=== PATIENT | female | born 1945 | race Caucasian/White ===

== ENCOUNTER 2016-05-23 08:25 | Emergency (ER) | payer OTHER, MEDICARE ==
[~2016-05-23 08:25] MED LIST: ACCUPRIL40 M1 PO; AMLODIPINE BESY1 T23 PO; AMLODIPINE BESYL5 M1 PO; ASPIRIN EC325 M2 PO; ATORVASTATIN CA10 M1 PO; AZITHROMYCIN D250 MG PO; B COMPLEX1 EACH PO; CALCIUM 600 +1 EA12 PO; CENTRUM SILVER1 EACH PO; FISH OIL 1,0001 EACH PO; KEFLEX500 M1 PO; METFORMIN HCL500 M3 PO; METFORMIN HCL500 M4 PO; METOPROLOL TART25 M1 PO; METOPROLOL TART50 MG PO; MUCINEX600 M1 PO; NATEGLINIDE60 M1 PO; NEXIUM 40MG40 MG PO; OMEPRAZOLE40 MG PO; QUINAPRIL HCL40 M1 PO; QUINAPRIL HYDRO40 MG PO; VITAMIN C500 M6 PO; VITAMIN D1000 UNIT PO
--- NOTE | 2016-05-23 09:14 | CT SCAN REPORT ---
EXAMINATION: CT HEAD WITHOUT CONTRAST CLINICAL INFORMATION: Headache with dizziness and syncope COMPARISON: None. TECHNIQUE: Contiguous axial imaging was performed from the skull base to vertex without intravenous administration of contrast. DLP: 600.71 mGy-cm. FINDINGS: There is no evidence of acute intracranial hemorrhage or territorial infarction. No abnormal mass effect or midline shift is seen. Bagley to white matter differentiation is well preserved. No extra-axial fluid collections are identified. The ventricles are normal in size. There is no abnormal attenuation within the brain parenchyma. Basal ganglia calcifications are seen bilaterally. The osseous structures and soft tissues are normal. The mastoid air cells are well aerated. There is mucosal thickening in the right maxillary sinus and opacification of a few right ethmoid air cells. There is some bony thickening about the right maxillary sinus wall consistent with chronic sinus disease. IMPRESSION: No acute intracranial pathology. Right maxillary and right ethmoid sinus disease.
--- NOTE | 2016-05-23 09:33 | ED AMS/SEIZURE/WEAK/DIZZY ---
History of Present Illness General Chief Complaint: Syncope and Near-Syncope Stated Complaint: NEAR SYNCOPE,DIZZY, FALL, -HEADSTRIKE, -THINNERS Source: patient, family, old records Exam Limitations: no limitations Vital Signs & Intake/Output Vital Signs & Intake/Output Vital Signs Date Time Temp Pulse Resp B/P Pulse O2 O2 Flow FiO2 Ox Delivery Rate 05/23 1239 98.4 78 18 174/73 99 Room Air 05/23 0833 96.9 89 20 160/90 97 Room Air Allergies Coded Allergies: Penicillins (Intermediate, RASH 07/13/15) Sulfa (Sulfonamide Antibiotics) (Intermediate, RASH 07/13/15) Uncoded Allergies: ARTIFICIAL SWEETNERS (UNKNOWN 03/15/14) Reconcile Medications Amlodipine Besylate 5 MG TABLET 1 TAB PO DAILY HEART (Reported) Ascorbate Calcium (Vitamin C) 500 MG TABLET 1 TAB PO DAILY SUPPLEMENT ( Reported) Aspirin (Ecotrin*) 325 MG TABLET.DR 1 TAB PO DAILY HEART HEALTH (Reported) Atorvastatin Calcium 10 MG TABLET 1 TAB PO DAILY CHOLESTEROL (Reported) Calcium Carbonate/Vitamin D3 (Calcium 600 + Vit D Tablet) 1 EACH TABLET 2 TAB PO DAILY SUPPLEMENT (Reported) Cephalexin (Keflex) 500 MG CAPSULE 1 CAP PO TID INFECTION Cholecalciferol (Vitamin D3) (Vitamin D) 1,000 UNIT TABLET 1 TAB PO DAILY SUPPLEMENT (Reported) Cholecalciferol (Vitamin D3) (Vitamin D) 1,000 UNIT TABLET 1 TAB PO DAILY SUPPLEMENT (Reported) Esomeprazole (Nexium) 40 MG CAP 1 TAB PO BID GERD (Reported) Guaifenesin (Mucinex) 600 MG TAB.ER.12H 1 TAB PO BID ALLLERGIES (Reported) Metformin HCl (Metformin HCl ER) 500 MG TAB.ER.24H 1 TAB PO TID DM (Reported) Metoprolol Tartrate 25 MG TABLET 1.5 TAB PO BID HEART (Reported) Multivit-Min/Iron/Folic/Lutein (Centrum Silver Women Tablet) 1 EACH TABLET 1 TAB PO DAILY SUPPLEMENT (Reported) Nateglinide 60 MG TABLET 1 TAB PO TID PRN DIABETES (Reported) [place]-3 Fatty Acids/Fish Oil (Fish Oil 1,000 MG Capsule) 1 EACH CAPSULE 1 CAP PO DAILY SUPPLEMENT (Reported) Quinapril HCl 40 MG TABLET 0.5 TAB PO DAILY HEART (Reported) Vitamin B Complex (B Complex) 1 EACH TABLET 1 TAB PO DAILY SUPPLEMENT ( Reported) Triage Note: PER PT GOT UP AT 0300, WHICH IS USUAL, PT GOT UP FROM SITTING POSITION AND GOT DIZZY, FELL BUT WAS ABLE TO TUCK IN HEAD SO NO HEAD STRIKE, DENIES LOC. CO DIZZYNESS AND HEADACHE WHICH SHE DID NOT HAVE EARLIER, PRIOR TO SYNCOPAL EVENT. ASLERT NO NEURO DEFICITS Triage Nurses Notes Reviewed? yes HPI: Patient presents for evaluation of dizziness that occurred about 7:15 this morning. Patient states she awoke at about 3:30 this morning which is her usual routine. She states that she had done a few activities around the house and was sitting watching TV. She stood up and knocked some papers off onto the floor, when she bent over to pick them up she had a sudden onset of severe spinning dizziness. She actually fell to the floor bumping the right thigh. She has been ambulatory since but has begun experiencing a pressure sensation in the forehead since the episode. Patient states that she always has a stuffy and runny nose but otherwise denies fever or cold symptoms. She has chronic hearing loss but denies any new hearing loss or tinnitus. She has felt nauseous with an abdominal pressure and vomiting since the onset of the dizziness. She has had vertigo in the past related to a prior with toxemia but states she has never experienced it this severely. Head movements make the dizziness worse. Past History Travel History Traveled to [place] past 21 day No Medical History Any Pertinent Medical History? 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 MOTHER, ; Cause: Heart attack. Hx Contributory? No Review of Systems Review of Systems Constitutional: Reports: no symptoms. EENTM: Reports: no symptoms. Respiratory: Reports: no symptoms. Cardiovascular: Reports: no symptoms. GI: Reports: no symptoms. Genitourinary: Reports: no symptoms. Musculoskeletal: Reports: no symptoms. Skin: Reports: no symptoms. Neurological/Psychological: Reports: no symptoms. Hematologic/Endocrine: Reports: no symptoms. Immunologic/Allergic: Reports: no symptoms. All Other Systems: Reviewed and Negative Physical Exam Physical Exam General Appearance: see below Comments: Gen.: Well-nourished, well-developed, no acute respiratory distress. Head: Normocephalic, atraumatic. Eyes: Normal inspection bilaterally, PERRLA, EOMI, no nystagmus, Hallpike negative Ears: Normal inspection bilaterally, TMs normal Nose: Normal inspection Throat/mouth : Moist mucosa Neck: Supple, full range of motion, no goiter, no carotid bruits, equal and normal carotid pulses Heart: Regular rate and rhythm, no murmurs rubs or gallops Lungs: Clear to auscultation bilaterally with normal air entry Chest: Nontender Back: Normal range of motion Abdomen: Soft, nontender, nondistended, normal bowel sounds Extremities: Normal range of motion grossly, equal radial pulses, no cyanosis clubbing or edema Neurologic: Cranial nerves 2 through 12 intact, speech is clear Skin: warm and dry Psychiatric: Calm, cooperative, no apparent delusions or hallucinations Core Measures ACS in differential dx? No CVA/TIA Diagnosis: No Severe Sepsis Present: No Septic Shock Present: No Progress Differential Diagnosis: VERTIGO, NEURONITIS, LABYRINTHITIS, mNIRE'S DISEASE, cva , CAROTID DISEASE Plan of Care: Orders Procedure Date/time Status MISTAKE 05/23 931 Active THYROID STIMULATING HORMONE 05/23 09 Complete TROPONIN LEVEL 05/23 0932 Complete CBC WITHOUT DIFFERENTIAL 05/23 0932 Complete BASIC METABOLIC PANEL 05/23 0932 Complete EKG 05/23 0835 Active Laboratory Tests 05/23/16 0940: Anion Gap 16, Estimated GFR > 60, BUN/Creatinine Ratio 17.8, Glucose 132 H, Calcium 9.3, Troponin I < 0.01, TSH 2.730, CBC w Diff NO MAN DIFF REQ, RBC 3.74 L, MCV 90.8, MCH 31.3 H, RDW 14.5, MPV 8.0, Gran % 62.6, Lymphocytes % 28.7, Monocytes % 7.4, Eosinophils % 0.8, Basophils % 0.5, Absolute Granulocytes 4.3, Absolute Lymphocytes 2.0, Absolute Monocytes 0.5, Absolute Eosinophils 0.1, Absolute Basophils 0, PUBS MCHC 34.5 Diagnostic Imaging: Discussed w/RAD: CT Scan. Radiology Impression: PATIENT: LAKIA MAIER PRESENT AGE: 71 PATIENT ACCOUNT NO: [id number] : 43 LOCATION: [facility], [place] ORDERING PHYSICIAN: LEONARD DOYLE MD SERVICE DATE: 05/23/16 EXAM TYPE: US - US- CAROTID-VERTEBRAL DOPPLER EXAMINATION: US DUPLEX CAROTID AND VERTEBRAL CLINICAL INFORMATION: Dizziness COMPARISON: July 03, 2015 TECHNIQUE: Real-time ultrasound and Doppler techniques (integrating B-mode 2D vascular images, Doppler spectral analysis and color flow Doppler imaging) were utilized to interrogate the extracranial carotid and vertebral arteries bilaterally. The degree of stenosis determined by criteria similar to NASCET. FINDINGS: On the right, there is some heterogeneous plaque present within the carotid bulb and origin of the internal carotid artery. In the distal CCA, the peak systolic velocity is 66 cm/sec. In the proximal ICA, the peak systolic velocity is 66 cm/ sec, and the end diastolic velocity is 17 cm/sec. Peak systolic velocity of the external carotid artery is 72 cm/s. . On the left, there is heterogeneous plaque within the carotid bulb and extending into the internal and external carotid arteries. In the distal CCA, the peak systolic velocity is 79 cm/sec. In the proximal ICA, the peak systolic velocity is 89 cm/sec, and the end diastolic velocity is 25 cm/sec. Peak systolic velocity of the external carotid artery is 80 cm/s. . The vertebral arteries show antegrade flow with normal waveforms bilaterally. IMPRESSION: 1. The right internal carotid artery shows no hemodynamically significant stenosis. 2. The left internal carotid artery shows no hemodynamically significant stenosis. Right and left internal carotid artery stenoses fall in the 0-49% category by duplex Doppler velocity spectral waveform analysis DICTATED BY: FRANNIE CEE MD DATE/TIME DICTATED:05/23/161152 ROUTE DELIVERY SUPERVISOR:MARISSA DATE/TIME TRANSCRIBED:05/23/161152 CONFIDENTIAL, DO NOT COPY WITHOUT APPROPRIATE AUTHORIZATION. <Electronically signed in Other Vendor System> SIGNED BY: FRANNIE CEE MD 05/23/16 1203, PATIENT: LAKIA MAIER PRESENT AGE: 71 PATIENT ACCOUNT NO: [id number] : 43 LOCATION: [facility], [place] ORDERING PHYSICIAN: LEONARD DOYLE MD SERVICE DATE: 05/23/16 EXAM TYPE: CAT - CT HEAD WO IV CONTRAST EXAMINATION: CT HEAD WITHOUT CONTRAST CLINICAL INFORMATION: Headache with dizziness and syncope COMPARISON: None. TECHNIQUE: Contiguous axial imaging was performed from the skull base to vertex without intravenous administration of contrast. DLP: 600.71 mGy-cm. FINDINGS: There is no evidence of acute intracranial hemorrhage or territorial infarction. No abnormal mass effect or midline shift is seen. Bagley to white matter differentiation is well preserved. No extra-axial fluid collections are identified. The ventricles are normal in size. There is no abnormal attenuation within the brain parenchyma. Basal ganglia calcifications are seen bilaterally. The osseous structures and soft tissues are normal. The mastoid air cells are well aerated. There is mucosal thickening in the right maxillary sinus and opacification of a few right ethmoid air cells. There is some bony thickening about the right maxillary sinus wall consistent with chronic sinus disease. IMPRESSION: No acute intracranial pathology. Right maxillary and right ethmoid sinus disease. DICTATED BY: FRANNIE CEE MD DATE/ TIME DICTATED:05/23/16901 ROUTE DELIVERY SUPERVISOR:MARISSA DATE/TIME TRANSCRIBED: 05/23/16901 CONFIDENTIAL, DO NOT COPY WITHOUT APPROPRIATE AUTHORIZATION. < Electronically signed in Other Vendor System> SIGNED BY: FRANNIE CEE MD 05/23/16 0914 Initial ED EKG: NSR, rate (72) Prior EKG: unchanged Comments: 05/23/2016 1:34:46 PM I have updated Patricia and her family on test results. She is feeling better after the meclizine. She is not sure if she wishes to continue the medication until she is evaluated by her primary care doctor tomorrow. I will give her a fallback printed prescription for meclizine. Departure Departure Disposition: HOME OR SELF CARE Condition: Stable Clinical Impression Primary Impression: Vertigo Referrals: GERARDO GARCIA MD (PCP/Family) Additional Instructions: Meclizine as needed for vertigo or spinning dizziness. Follow-up with your primary care physician in the next 48 hours for reevaluation. Return if any concerns or sudden worsening. Please note that there might be incidental findings in your evaluation that are unrelated to the current emergency department visit. Please notify your primary care doctor about this emergency department visit in order to obtain and review all of the testing performed so that these incidental findings can be monitored as needed. If you had an x-ray performed, please understand that some fractures may not be seen on the initial set of x-rays. If your symptoms persist you might need a repeat set of x-rays to check for such a fracture. If you had a laceration evaluated, please understand that foreign bodies such as glass or wood may not be visible to the naked eye or on plain x-rays. If the wound becomes red, swollen, increasingly more painful or if there is any drainage from the wound, please have it reevaluated by a physician for the possibility of a retained foreign body. Thank you for choosing the [facility] Emergency Department for your care. It was a pleasure to serve you today. Leonard Doyle M.D. [facility] Departure Forms: Customer Survey General Discharge Information
[2016-05-23 09:55] LABS: ABSOLUTE BASOPHIL COUNT 0 /CUMM (0.0-0.2); ABSOLUTE EOSINOPHIL COUNT 0.1 /CUMM (0.0-0.7); ABSOLUTE GRANULOCYTE CT 4.3 /CUMM (1.4-6.5); ABSOLUTE MONOCYTE COUNT 0.5 /CUMM (0.10-0.60); BASOPHIL % 0.5 % (0.0-2.0); EOSINOPHIL % 0.8 % (0-5); GRANULOCYTE % 62.6 % (42.2-75.2); MEAN CORPUSCULAR HGB 31.3 PG (27.0-31.0); MEAN CORPUSCULAR HGB CONC 34.5 G/DL (33.0-37.0); MEAN CORPUSCULAR VOLUME 90.8 FL (81.0-99.0); PLATELET COUNT 208 /CUMM (130-400); RBC DISTRIBUTION WIDTH 14.5 % (11.5-14.5); RED BLOOD CELL CT 3.74 /CUMM (4.20-5.40); WHITE BLOOD CELL COUNT 6.9 /CUMM (4.8-10.8)
--- NOTE | 2016-05-23 12:03 | ULTRASOUND REPORT ---
EXAMINATION: US DUPLEX CAROTID AND VERTEBRAL CLINICAL INFORMATION: Dizziness COMPARISON: July 03, 2015 TECHNIQUE: Real-time ultrasound and Doppler techniques (integrating B-mode 2D vascular images, Doppler spectral analysis and color flow Doppler imaging) were utilized to interrogate the extracranial carotid and vertebral arteries bilaterally. The degree of stenosis determined by criteria similar to NASCET. FINDINGS: On the right, there is some heterogeneous plaque present within the carotid bulb and origin of the internal carotid artery. In the distal CCA, the peak systolic velocity is 66 cm/sec. In the proximal ICA, the peak systolic velocity is 66 cm/sec, and the end diastolic velocity is 17 cm/sec. Peak systolic velocity of the external carotid artery is 72 cm/s. . On the left, there is heterogeneous plaque within the carotid bulb and extending into the internal and external carotid arteries. In the distal CCA, the peak systolic velocity is 79 cm/sec. In the proximal ICA, the peak systolic velocity is 89 cm/sec, and the end diastolic velocity is 25 cm/sec. Peak systolic velocity of the external carotid artery is 80 cm/s. . The vertebral arteries show antegrade flow with normal waveforms bilaterally. IMPRESSION: 1. The right internal carotid artery shows no hemodynamically significant stenosis. 2. The left internal carotid artery shows no hemodynamically significant stenosis. Right and left internal carotid artery stenoses fall in the 0-49% category by duplex Doppler velocity spectral waveform analysis
[2016-05-23 12:39] VITALS: BP 174/73
[2016-05-23] MEDS ORDERED: MECLIZINE HCL25 MG PO (13:42)
== END 2016-05-23 13:51 ==
LOC: ERH 08:25
PROVIDERS: Emergency Medicine
DX: R42 Dizziness and giddiness (principal); E11.9 Type 2 diabetes mellitus without complications; I25.10 Atherosclerotic heart disease of native coronary artery without angina pectoris; I10 Essential (primary) hypertension; J43.9 Emphysema, unspecified; K21.9 Gastro-esophageal reflux disease without esophagitis; K51.90 Ulcerative colitis, unspecified, without complications; K57.90 Diverticulosis of intestine, part unspecified, without perforation or abscess without bleeding; M19.90 Unspecified osteoarthritis, unspecified site; Z79.84 Long term (current) use of oral hypoglycemic drugs; Z79.82 Long term (current) use of aspirin; Z95.1 Presence of aortocoronary bypass graft
CPT/HCPCS: 93005; 93010

== ENCOUNTER 2016-08-25 17:34 | Emergency (ER) | payer OTHER, MEDICARE ==
[~2016-08-25] VITALS: Ht 165.1 cm; Wt 72.6 kg
[~2016-08-25 17:34] MED LIST changes: +MECLIZINE HCL25 MG PO
--- NOTE | 2016-08-25 18:19 | ED GENERAL ADULT ---
History of Present Illness General Chief Complaint: Chest Pain Stated Complaint: SENT IN BY MD MARRUFO FOR CHEST PAIN Source: patient Exam Limitations: no limitations Vital Signs & Intake/Output Vital Signs & Intake/Output Vital Signs Date Time Temp Pulse Resp B/P B/P Pulse O2 O2 Flow FiO2 Mean Ox Delivery Rate 08/26 2151 98.4 83 17 121/60 96 Room Air 08/25 1954 96.8 87 18 138/66 99 Room Air 08/25 1918 97 08/25 1813 96 Room Air 08/25 1748 99.1 79 18 138/70 97 Room Air ED Intake and Output 08/26 0000 08/25 1200 Intake Total Output Total Balance Patient 160 lb Weight Weight Reported by Patient Measurement Method Allergies Coded Allergies: Penicillins (Intermediate, RASH 07/13/15) Sulfa (Sulfonamide Antibiotics) (Intermediate, RASH 07/13/15) Uncoded Allergies: ARTIFICIAL SWEETNERS (UNKNOWN 03/15/14) Reconcile Medications Albuterol Sulfate (Proair Hfa) 90 MCG HFA.AER.AD 2 PUF INH Q4-6 PRN PRN SOB Ascorbate Calcium (Vitamin C) 500 MG TABLET 1 TAB PO DAILY SUPPLEMENT ( Reported) Aspirin (Ecotrin*) 325 MG TABLET.DR 1 TAB PO DAILY HEART HEALTH (Reported) Atorvastatin Calcium 10 MG TABLET 1 TAB PO DAILY CHOLESTEROL (Reported) Calcium Carbonate/Vitamin D3 (Calcium 600 + Vit D Tablet) 1 EACH TABLET 2 TAB PO DAILY SUPPLEMENT (Reported) Cholecalciferol (Vitamin D3) (Vitamin D) 1,000 UNIT TABLET 1 TAB PO DAILY SUPPLEMENT (Reported) Esomeprazole (Nexium) 40 MG CAP 1 TAB PO BID GERD (Reported) Guaifenesin (Mucinex) 600 MG TAB.ER.12H 1 TAB PO BID ALLLERGIES (Reported) Levofloxacin (Levaquin) 500 MG TABLET 1 TAB PO DAILY PNEUMONIA Metformin HCl (Glucophage) 1,000 MG TABLET 1 TAB PO DAILY DM (Reported) Metformin HCl 500 MG TABLET 1 TAB PO QHS DM (Reported) Metoprolol Tartrate 25 MG TABLET 1.5 TAB PO BID HEART (Reported) Multivit-Min/Iron/Folic/Lutein (Centrum Silver Women Tablet) 1 EACH TABLET 1 TAB PO DAILY SUPPLEMENT (Reported) [place]-3 Fatty Acids/Fish Oil (Fish Oil 1,000 MG Capsule) 1 EACH CAPSULE 1 CAP PO DAILY SUPPLEMENT (Reported) Quinapril HCl (Accupril) 20 MG TABLET 1 TAB PO BID HTN (Reported) Vitamin B Complex (B Complex) 1 EACH TABLET 1 TAB PO DAILY SUPPLEMENT ( Reported) Triage Note: PT TO TRIAGE WITH C/O CHEST PAIN 5/10, COUGH PRODUCTIVE OF YELLOW/GREEN SPUTUM, MIDDLE ABD PAIN 5/10 xFEW DAYS. PT DENIES N/V, LAST BM LAST NIGHT DIARRHEA. PT DENIES SOB. VSS. HX OF COPD, CAD, HNT,GERD,DIABETES. EKG DONE IN [place]. PT TO ROOM17 BY WHEELCHAIR. Triage Nurses Notes Reviewed? yes Onset: Gradual Duration: week(s): (1) Timing: remote history Injury Environment: home Severity: moderate Severity Numbers: 7 Modifying Factors: Worsens With: other (deep breath). Associated Symptoms: cough, chest pain HPI: Patient is a 71-year-old with history of COPD presenting to the emergency department with chief complaint of left-sided chest pain, productive cough of yellow sputum nothing on for the past one week. She reports that it started initially in her sinuses and then she feels like now it in her chest. Cough is worse at night. Has been taking [id number] medications without relief. Her primary care physician wanted her to come in for evaluation of her chest pain. Denies any lower extremity edema. No recent travel. No recent surgeries. No sick contacts. She does not use oxygen at home. She does not use any daily inhalers for her COPD. History of pneumonia. Reports this may feel similar. She also reports episode of diarrhea yesterday. Nonbloody. Denying any current abdominal pain at this time but reports that she has some mild abdominal cramping at that time. (MC NULL) Past History Travel History Traveled to [place] past 21 day No Medical History Any Pertinent Medical History? 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 MOTHER, ; Cause: Heart attack. Hx Contributory? Yes (MC NULL) Review of Systems Review of Systems Constitutional: Reports: malaise. Comments Review of systems: See HPI, All other systems negative. Constitutional, no chills fever or weight loss HEENT: No visual changes no sore throat no congestion Cardiovascular: No palpitation , orthopnea or ankle swelling Skin, no jaundice no rashes Respiratory: No dyspnea or hemoptysis GI: No nausea no vomiting : No dysuria No hematuria Muscle skeletal: no back pain, no neck pain, Neurologic: No numbness no confusion Psych: No stress anxiety or depression,. Heme/endocrine: No bruising no bleeding no polyuria or polydipsia Immunology: No splenectomy or history of AIDS (MC NULL) Physical Exam Physical Exam General Appearance: well developed/nourished, no apparent distress, alert, awake , comfortable Comments: Well-developed well-nourished person in no acute distress HEENT: Pupils equally round and reactive to light and accommodation. Nose is atraumatic. External auditory canal and Tympanic membranes clear. Pharynx is mildly erythematous, no edema. No swelling or edema. Moist oromucosa. Neck: Supple, no lymphadenopathy, normal range of motion without pain or tenderness Back: Nontender, no CVA tenderness. Cardiovascular: Regular rate and rhythms no murmurs rubs or gallops, normal JVP Respiratory: Chest nontender. No respiratory distress.scattered rhonchi to left lobe and expiratory wheezing noted at bilateral bases. Abdomen: Soft, nontender nondistended, no appreciable organomegaly. Normal bowel sounds. No ascites. No rebound or guarding. Extremity: No edema, no calf tenderness to palpation, normal and equal pulses. Neuro: Alert oriented x3 Skin: No appreciable rash on exposed skin, skin is warm and dry. Psych: Mood and affect is normal, memory and judgment is normal. Core Measures ACS in differential dx? Yes CVA/TIA Diagnosis: No Severe Sepsis Present: No Septic Shock Present: No (MC NULL) Progress Differential Diagnoses I considered the following diagnoses in my evaluation of the patient: Pneumonia , bronchitis, pulmonary embolus, ACS, dehydration, viral syndrome, influenza Plan of Care: Orders Procedure Date/time Status BLOOD CULTURE 08/25 2101 Active Telemetry/Cyber Workforce Developer And Manager 08/25 1818 Active TROPONIN LEVEL 08/25 1818 Complete PARTIAL THROMBOPLASTIN TIME 08/25 1818 Complete PROTHROMBIN TIME 08/25 1818 Complete COMPREHENSIVE METABOLIC PANEL 08/25 1818 Complete CBC WITHOUT DIFFERENTIAL 08/25 1818 Complete B-TYPE NATRIURETIC PEP (BNP) 08/25 1818 Complete EKG 08/25 173 Active Current Medications Sig/Pretty Start time Last Medication Dose Stop Time Status Admin Azithromycin 500 MG ONCE ONE 08/25 2114 CAN (Zithromax) 08/25 2213 Sodium Chloride 250 ML (Normal Saline 0.9%) Ceftriaxone Sodium 1,000 MG ONCE ONE 08/25 2114 CAN (Rocephin) 08/26 2115 Laboratory Tests 08/25/16 1820: Anion Gap 16, Estimated GFR > 60, BUN/Creatinine Ratio 18.9, Glucose 103 H, Calcium 9.7, Total Bilirubin 0.8, AST 18, ALT 31, Alkaline Phosphatase 59, Troponin I < 0.01, Sny-B-Vvpfpommgfx Pept 200 H, Total Protein 7.1, Albumin 4.3 , Globulin 2.8, Albumin/Globulin Ratio 1.5, PT 12.6 H, INR 1.20 H, APTT 28, CBC w Diff NO MAN DIFF REQ, RBC 3.93 L, MCV 93.9, MCH 31.6 H, RDW 13.6, MPV 8.5, Gran % 71.6, Lymphocytes % 22.0, Monocytes % 5.5, Eosinophils % 0.6, Basophils % 0.3, Absolute Granulocytes 9.0 H, Absolute Lymphocytes 2.8, Absolute Monocytes 0.7 H, Absolute Eosinophils 0.1, Absolute Basophils 0, PUBS MCHC 33.7 Microbiology 08/25 2158 BLOOD: Blood Culture - RES 08/25 2144 BLOOD: Blood Culture - RES GRAM POSITIVE COCCI Diagnostic Imaging: Viewed by Me: CT Scan. Discussed w/RAD: CT Scan. Radiology Impression: ATIENT: KASSY MAIER PRESENT AGE: 71 PATIENT ACCOUNT NO: [id number] : 43 LOCATION: [facility] ORDERING PHYSICIAN: MC LINDQUIST SERVICE DATE: 08/25/16 EXAM TYPE: CAT - CTA CHEST-PULMONARY EMBOLISM EXAMINATION: CT ANGIOGRAM OF THE CHEST WITH AND WITHOUT CONTRAST (CT PULMONARY ANGIOGRAM FOR PE) CLINICAL INFORMATION: Shortness of breath, chest pain, evaluate for PE COMPARISON: Previous dated 07/04/2014 TECHNIQUE: Prior to contrast administration, noncontrast localization images were obtained. Subsequently, multidetector volumetric imaging was performed from the thoracic inlet to below the diaphragms following the administration of 80 mL Omnipaque 350 intravenous contrast. No contrast reaction reported. Sagittal, coronal, and MIP oblique sagittal reformatted images were obtained on the CT workstation, uploaded to PACS, and reviewed. FINDINGS: There is no filling defect to suggest a pulmonary embolism. Imaging the lung murphy. Centrally there is no bulky adenopathy. Hiatal hernia is present. Imaging lung murphy. Right lung; minimal right medial basilar opacity. Likely ongoing chronic change. No significant infiltrate or effusion. Left lung; There is a new nodule in left midlung. Measures 6 mm. Seen on image 29. There is some density now present in the lingula. Most consistent with a small area of infiltrate. Ill-defined opacities left base consistent with infiltrate. Moderate-sized IMPRESSION: No filling defect to suggest a pulmonary embolism. Findings consistent with moderate-sized left lower lobe infiltrate. 6 mm nodule The left midlung. This is a groundglass in appearance. Follow-up noncontrast CT recommended in 6 months DICTATED BY: VICKY LY MD DATE/TIME DICTATED:08/25/162045 PASSENGER BARGE MASTER:MARISSA DATE/TIME TRANSCRIBED:08/25/162045 CONFIDENTIAL, DO NOT COPY WITHOUT APPROPRIATE AUTHORIZATION. <Electronically signed in Other Vendor System> SIGNED BY: VICKY LY MD 08/25/162058 Initial ED EKG: SINUS RHYTHM, 70 BPM, BORDERLINE LEFT AXIS DEVIATION Prior EKG: unchanged Comments: Ambulatory oxygen saturation is 97%. Patient will be discharged home. (REBECA LINDQUIST,MC) Comments: 08/26/2016 2:50:10 PM I received a phone call from the microbiology department regarding one set of Gram-positive cocci in chains. I have just spoken with the patient and she states she is still having a pleuritic type chest pain but overall seems to be feeling better. A page out to Dr. Marrufo her primary care physician at her request. 08/26/2016 2:57:26 PM patient's case discussed with Dr. Mrarufo, who will arrange for one of his associates to check on her tomorrow. He has already contacted her and feels that she should do well as an outpatient. 08/26/2016 3:02:32 PM I have updated Kassy on the plan. If she is unable to follow up tomorrow at her PCPs office and she will return to the emergency department for reevaluation. (JAYASHREE DE ANDA,VICKY Caceres) Departure Departure Time of Disposition: 2135 Disposition: HOME OR SELF CARE Condition: Stable Clinical Impression Primary Impression: Pneumonia Qualifiers: Pneumonia type: due to unspecified organism Laterality: left Lung location: lower lobe of lung Qualified Code: J18.1 - Lobar pneumonia, unspecified organism Referrals: RADHA DE ANDA,GERARDO Moran (PCP/Family) Additional Instructions: Follow-up with your primary care physician call to make an appointment. Take antibiotics as prescribed. Use albuterol inhaler as directed. Return for worsening symptoms or concerns. Increase fluid intake. Monitor blood glucose level as antibiotics can alter this. Departure Forms: Customer Survey General Discharge Information Prescriptions: Current Visit Scripts Levofloxacin (Levaquin) 1 TAB PO DAILY #7 TAB Albuterol Sulfate (Proair Hfa) 2 PUF INH Q4-6 PRN PRN SOB #1 INHAL (MC NULL) PA/BOTTLE HOP Co-Sign Statement Statement: ED Attending supervision documentation- [X] I saw and evaluated the patient. I have also reviewed all the pertinent lab results and diagnostic results. I agree with the findings and the plan of care as documented in the PA's/BOTTLE HOP's documentation. [X] I have reviewed the ED Record and agree with the PA's/BOTTLE HOP's documentation. [] Additions or exceptions (if any) to the PAs/BOTTLE HOP's note and plan are summarized below: [] (DARIAN DE ANDA,LOIDA) Critical Care Note Critical Care Note Critical Care Time: non-applicable (MC NULL)
[2016-08-25] MEDS ORDERED: ACCUPRIL20 MG PO (18:23)
[2016-08-25] MEDS ORDERED: METFORMIN HCL500 M3 PO (18:31)
[2016-08-25] MEDS ORDERED: GLUCOPHAGE1000 M1 PO (18:31)
[2016-08-25 18:47] LABS: ABSOLUTE BASOPHIL COUNT 0 /CUMM (0.0-0.2); ABSOLUTE EOSINOPHIL COUNT 0.1 /CUMM (0.0-0.7); ABSOLUTE LYMPH COUNT 2.8 /CUMM (1.2-3.4); ABSOLUTE MONOCYTE COUNT 0.7 /CUMM (0.10-0.60); BASOPHIL % 0.3 % (0.0-2.0); EOSINOPHIL % 0.6 % (0-5); GRANULOCYTE % 71.6 % (42.2-75.2); HEMATOCRIT 36.9 % (37-47); MEAN CORPUSCULAR HGB 31.6 PG (27.0-31.0); MEAN CORPUSCULAR HGB CONC 33.7 G/DL (33.0-37.0); MEAN CORPUSCULAR VOLUME 93.9 FL (81.0-99.0); MEAN PLATELET VOLUME 8.5 FL (7.4-10.4); PLATELET COUNT 239 /CUMM (130-400); RBC DISTRIBUTION WIDTH 13.6 % (11.5-14.5); RED BLOOD CELL CT 3.93 /CUMM (4.20-5.40); WHITE BLOOD CELL COUNT 12.6 /CUMM (4.8-10.8)
[2016-08-25 18:53] LABS: PT 12.6 SEC (9.4-12.5); PTT 28 SEC (25-37)
--- NOTE | 2016-08-25 20:59 | CT SCAN REPORT ---
EXAMINATION: CT ANGIOGRAM OF THE CHEST WITH AND WITHOUT CONTRAST (CT PULMONARY ANGIOGRAM FOR PE) CLINICAL INFORMATION: Shortness of breath, chest pain, evaluate for PE COMPARISON: Previous dated 07/04/2014 TECHNIQUE: Prior to contrast administration, noncontrast localization images were obtained. Subsequently, multidetector volumetric imaging was performed from the thoracic inlet to below the diaphragms following the administration of 80 mL Omnipaque 350 intravenous contrast. No contrast reaction reported. Sagittal, coronal, and MIP oblique sagittal reformatted images were obtained on the CT workstation, uploaded to PACS, and reviewed. FINDINGS: There is no filling defect to suggest a pulmonary embolism. Imaging the lung murphy. Centrally there is no bulky adenopathy. Hiatal hernia is present. Imaging lung murphy. Right lung; minimal right medial basilar opacity. Likely ongoing chronic change. No significant infiltrate or effusion. Left lung; There is a new nodule in left midlung. Measures 6 mm. Seen on image 29. There is some density now present in the lingula. Most consistent with a small area of infiltrate. Ill-defined opacities left base consistent with infiltrate. Moderate-sized IMPRESSION: No filling defect to suggest a pulmonary embolism. Findings consistent with moderate-sized left lower lobe infiltrate. 6 mm nodule The left midlung. This is a groundglass in appearance. Follow-up noncontrast CT recommended in 6 months
[2016-08-25] MEDS ORDERED: LEVAQUIN500 M1 PO (21:37)
[2016-08-25] MEDS ORDERED: PROAIR HFA8.5 GM INH (21:37)
[2016-08-25 21:52] VITALS: BP 121/60
== END 2016-08-25 22:02 ==
LOC: ERH 17:34
PROVIDERS: Physician Assistant
DX: J18.9 Pneumonia, unspecified organism (principal); R07.9 Chest pain, unspecified; R05 Cough
CPT/HCPCS: 1263; 87040; 93005; 93010; 96374

== ENCOUNTER 2016-08-27 09:59 | Emergency (ER) | payer OTHER, MEDICARE ==
[~2016-08-27] VITALS: Ht 165.1 cm; Wt 72.6 kg
[~2016-08-27 09:59] MED LIST changes: +ACCUPRIL20 MG PO; +GLUCOPHAGE1000 M1 PO; +LEVAQUIN500 M1 PO; +PROAIR HFA8.5 GM INH
--- NOTE | 2016-08-27 11:10 | ED GENERAL ADULT ---
History of Present Illness General Chief Complaint: General Adult Stated Complaint: NOT FEELING WELL Source: patient, family Exam Limitations: no limitations Vital Signs & Intake/Output Vital Signs & Intake/Output Vital Signs Date Time Temp Pulse Resp B/P B/P Pulse O2 O2 Flow FiO2 Mean Ox Delivery Rate 08/27 1606 97.5 73 16 150/67 97 Room Air 08/27 1257 97.5 73 16 139/63 99 Room Air 08/27 1156 95 Room Air 08/27 1018 98.0 88 18 122/67 98 Room Air Allergies Coded Allergies: Penicillins (Intermediate, RASH 07/13/15) Sulfa (Sulfonamide Antibiotics) (Intermediate, RASH 07/13/15) Uncoded Allergies: ARTIFICIAL SWEETNERS (UNKNOWN 03/15/14) Reconcile Medications Albuterol Sulfate (Proair Hfa) 90 MCG HFA.AER.AD 2 PUF INH Q4-6 PRN PRN SOB Ascorbate Calcium (Vitamin C) 500 MG TABLET 1 TAB PO DAILY SUPPLEMENT ( Reported) Aspirin (Ecotrin*) 325 MG TABLET.DR 1 TAB PO DAILY HEART HEALTH (Reported) Atorvastatin Calcium 10 MG TABLET 1 TAB PO DAILY CHOLESTEROL (Reported) Calcium Carbonate/Vitamin D3 (Calcium 600 + Vit D Tablet) 1 EACH TABLET 2 TAB PO DAILY SUPPLEMENT (Reported) Cholecalciferol (Vitamin D3) (Vitamin D) 1,000 UNIT TABLET 1 TAB PO DAILY SUPPLEMENT (Reported) Esomeprazole (Nexium) 40 MG CAP 1 TAB PO BID GERD (Reported) Guaifenesin (Mucinex) 600 MG TAB.ER.12H 1 TAB PO BID ALLLERGIES (Reported) Levofloxacin (Levaquin) 500 MG TABLET 1 TAB PO DAILY PNEUMONIA Metformin HCl (Glucophage) 1,000 MG TABLET 1 TAB PO DAILY DM (Reported) Metformin HCl 500 MG TABLET 1 TAB PO QHS DM (Reported) Metoprolol Tartrate 25 MG TABLET 1.5 TAB PO BID HEART (Reported) Multivit-Min/Iron/Folic/Lutein (Centrum Silver Women Tablet) 1 EACH TABLET 1 TAB PO DAILY SUPPLEMENT (Reported) [place]-3 Fatty Acids/Fish Oil (Fish Oil 1,000 MG Capsule) 1 EACH CAPSULE 1 CAP PO DAILY SUPPLEMENT (Reported) Quinapril HCl (Accupril) 20 MG TABLET 1 TAB PO BID HTN (Reported) Vitamin B Complex (B Complex) 1 EACH TABLET 1 TAB PO DAILY SUPPLEMENT ( Reported) Triage Note: 71 YEAR OLD FEMALE TO ER STATES THAT DR BLANC CALLED HER YESTERDAY DUE TO POSITIVE BC. PT TRIED TO FOLLOW UP WITH HER PMD BUT HE IS OUT TODAY. AFEBRILE Triage Nurses Notes Reviewed? yes HPI: 71 yo F PMH HTN, HLD, CAD (s/p CABG), DM, COPD presenting with chills, malaise, known PNA with (+) Blood cultures. Patient initially presented to [place] ED on 08/25 with 2-3 days of cough, fevers, chills, found to have pneumonia, started on Levaquin, discharged. After discharge patient's blood cultures grew gram- positive cocci, told to follow up with PMD for evaluation (given positive blood cultures), PMD was unavailable's office for an appointment, so patient was told to return to ED for evaluation. Endorses mild ongoing shortness of breath, intermittent, worse with exertion, mild cough, improving, intermittent chest pains, lasting seconds, sharp, bilateral lower chest "underneath ribs". Some chills this morning, generalized weakness, malaise, but overall patient feels symptoms improved on Levaquin. (JOSE ANGEL DE ANDA,RICHELLE) Past History Travel History Traveled to [place] past 21 day No Medical History Any Pertinent Medical History? 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" Diverticulosis on colonosocpy in 2014 ; EGD 2013 5cm HH, no varices Barretts esophagus s/p RFA for high grade dysplasia 2011 GARDUNO'S ESOPHAGUS Garduno's esophagus s/p radiofrequency ablation Hepatic: NONE Renal: NONE Musculoskeletal: osteoarthritis Psychiatric: NONE Endocrine: diabetes Blood Disorders: NONE Cancer(s): NONE AUTOMOBILE INSURANCE CLAIM EXAMINER/Reproductive: NONE History of MRSA: No History of VRE: No History of CDIFF: No Surgical History Surgical History: CABG (07/22) Psychosocial History Who do you live with Spouse Services at Home None What is your primary language Occitan Tobacco Use: Never used ETOH Use: denies use Illicit Drug Use: denies illicit drug use Family History Family History, If Any: SISTER, ; Cause: Heart attack. MOTHER, ; Cause: Heart attack. Hx Contributory? Yes (RICHELLE WALTER MD) Review of Systems Review of Systems Constitutional: Reports: chills, malaise, weakness. Denies: fever. EENTM: Reports: no symptoms. Respiratory: Reports: cough, short of breath. Denies: sputum production. Cardiovascular: Reports: chest pain. Denies: palpitations, peripheral edema. GI: Reports: no symptoms. Genitourinary: Reports: no symptoms. Musculoskeletal: Reports: no symptoms. Skin: Reports: no symptoms. Neurological/Psychological: Reports: no symptoms. Hematologic/Endocrine: Reports: no symptoms. Immunologic/Allergic: Reports: no symptoms. All Other Systems: Reviewed and Negative (RICHELLE WALTER MD) Physical Exam Physical Exam General Appearance: well developed/nourished, no apparent distress, alert, awake Head: atraumatic, normal appearance Eyes: Bilateral: normal appearance. Ears, Nose, Throat: normal pharynx, normal ENT inspection Neck: normal inspection, supple, full range of motion Respiratory: normal breath sounds, no respiratory distress, lungs clear, No Wheezes Cardiovascular: regular rate/rhythm, edema Gastrointestinal: normal bowel sounds, soft, non-tender Back: normal inspection, normal range of motion Neurologic/Psych: no motor/sensory deficits, awake, alert, oriented x 3 Core Measures ACS in differential dx? No CVA/TIA Diagnosis: No Severe Sepsis Present: No Septic Shock Present: No (RICHELLE WALTER MD) Progress Differential Diagnoses I considered the following diagnoses in my evaluation of the patient: [Viral URI , bronchitis, pneumonia, COPD exacerbation, ACS, bacteremia] Initial ED EKG: normal sinus rhythm (RICHELLE WALTER MD) Plan of Care: Orders Procedure Date/time Status LACTIC ACID 08/27 1434 Complete TROPONIN LEVEL 08/27 1134 Complete LACTIC ACID 08/27 1134 Complete CBC WITHOUT DIFFERENTIAL 08/27 1134 Complete BASIC METABOLIC PANEL 08/27 1134 Complete EKG 08/27 1134 Active Laboratory Tests 08/27/16 1540: Lactic Acid 1.5 08/27/16 1154: Anion Gap 12, Estimated GFR 54 L, BUN/Creatinine Ratio 16.0, Glucose 127 H, Lactic Acid 2.7 H, Calcium 9.0, Troponin I < 0.01, CBC w Diff NO MAN DIFF REQ, RBC 3.73 L, MCV 93.6, MCH 32.0 H, RDW 13.4, MPV 8.2, Gran % 65.7, Lymphocytes % 26.3, Monocytes % 6.9, Eosinophils % 0.7, Basophils % 0.4, Absolute Granulocytes 4.1, Absolute Lymphocytes 1.7, Absolute Monocytes 0.4, Absolute Eosinophils 0, Absolute Basophils 0, PUBS MCHC 34.2 Physician MDM: 71 yo F PMH HTN, HLD, CAD (s/p CABG), DM, COPD presenting with chills, malaise, known PNA with (+) Blood cultures. VSS, normal HR, BP, and room air O2 sat, cardiopulmonary exam benign. DDx: Pneumonia, bacteremia, ACS. EKG sinus rhythm, nonischemic, troponin negative. CBC with hemoglobin low around baseline anemia, leukocytosis present during previous evaluation on the . BMP with mild hyponatremia to 134. Lactate 2.7. Given 1 L normal saline, repeat lactic acid 1.5, clearing. The patient has a known community- acquired pneumonia, is being treated appropriately with Levaquin, and has had improvement of her symptoms while on this antibiotic, no need to change antibiotics based on blood culture results. Given patient well-appearing, with normal vital signs, reassuring lab work, discharged with return precautions, encouraged to drink plenty of fluids and follow up with primary care physician tomorrow. The plan of care was discussed with the patient and her expressed agreement and understanding. (JOSE ANGEL DE ANDA,RICHELLE) Departure Departure Disposition: HOME OR SELF CARE Condition: Stable Clinical Impression Primary Impression: Pneumonia Qualifiers: Pneumonia type: due to unspecified organism Laterality: unspecified laterality Lung location: unspecified part of lung Qualified Code: J18.9 - Pneumonia, unspecified organism Secondary Impressions: Dehydration Referrals: GERARDO MARRUFO MD (PCP/Family) Additional Instructions: Continue levofloxacin. Drink plenty of fluids. Follow up with Dr. Marrufo. Return to the ED for any new, worsening, or concerning symptoms. Departure Forms: Customer Survey General Discharge Information (RICHELLE WALTER MD) PA/MEDICAL OFFICE SUPERVISOR Co-Sign Statement Statement: ED Attending supervision documentation- [X] I saw and evaluated the patient. I have also reviewed all the pertinent lab results and diagnostic results. I agree with the findings and the plan of care as documented in the PA's/MEDICAL OFFICE SUPERVISOR's documentation. [X] I have reviewed the ED Record and agree with the PA's/MEDICAL OFFICE SUPERVISOR's documentation. [] Additions or exceptions (if any) to the PAs/MEDICAL OFFICE SUPERVISOR's note and plan are summarized below: [] (DARIAN DE ANDA,LOIDA) Critical Care Note Critical Care Note Critical Care Time: non-applicable (JOSE ANGEL DE ANDA,RICHELLE)
[2016-08-27 12:03] LABS: ABSOLUTE BASOPHIL COUNT 0 /CUMM (0.0-0.2); ABSOLUTE EOSINOPHIL COUNT 0 /CUMM (0.0-0.7); ABSOLUTE GRANULOCYTE CT 4.1 /CUMM (1.4-6.5); ABSOLUTE LYMPH COUNT 1.7 /CUMM (1.2-3.4); ABSOLUTE MONOCYTE COUNT 0.4 /CUMM (0.10-0.60); BASOPHIL % 0.4 % (0.0-2.0); EOSINOPHIL % 0.7 % (0-5); GRANULOCYTE % 65.7 % (42.2-75.2); HEMATOCRIT 34.9 % (37-47); MEAN CORPUSCULAR HGB CONC 34.2 G/DL (33.0-37.0); MEAN CORPUSCULAR VOLUME 93.6 FL (81.0-99.0); MEAN PLATELET VOLUME 8.2 FL (7.4-10.4); PLATELET COUNT 224 /CUMM (130-400); RBC DISTRIBUTION WIDTH 13.4 % (11.5-14.5); RED BLOOD CELL CT 3.73 /CUMM (4.20-5.40); WHITE BLOOD CELL COUNT 6.3 /CUMM (4.8-10.8)
[2016-08-27 16:06] VITALS: BP 150/67
== END 2016-08-27 16:50 ==
LOC: ERH 09:59
PROVIDERS: Student in an Organized Health Care Education/Training Program
DX: J18.9 Pneumonia, unspecified organism (principal); E86.0 Dehydration
CPT/HCPCS: 93005; 93010; 96360